=== PATIENT | female | born 1970 | race Caucasian/White ===

== ENCOUNTER → 2016-11-29 | Outpatient (CLI) | payer OTHER | LOC: BMCIMAGING 14:11 | PROVIDERS: ATTEND Internal Medicine | DX: M79.89 Other specified soft tissue disorders (principal) ==

== ENCOUNTER → 2017-07-29 | Outpatient (CLI) | payer OTHER | LOC: FIMAGING 15:32 | PROVIDERS: ATTEND Internal Medicine | DX: Z12.31 Encounter for screening mammogram for malignant neoplasm of breast (principal) | CPT/HCPCS: G0202 ==

== ENCOUNTER 2017-09-08 04:39 | Emergency (ER) | payer OTHER ==
[2017-09-08 04:45] VITALS: RESP 18; TEMP 98.2
[2017-09-08 05:39] LABS: PLATELET COUNT 215 10^3/uL (150-400)
--- NOTE | 2017-09-08 06:01 | EDPHY ---
H & P Stated Complaint: Fells like having a stroke, l jaw pain , no neuro sx., recent travel Time Seen by Provider: 09/08/17 04:45 HPI/ROS: HPI The patient presents with stiffness of her right jaw which began at about 4:00 a.m. when she awoke from sleep. She says it feels tight and swollen. She also reports that she has a tight sensation in her right axillary region. She awoke from sleep and felt sweaty and flushed. This happens intermittently to her and she attributes it to perimenopause. She does not have any shortness of breath, nausea, vomiting, dizziness. She says that she thinks she has noticed a right-sided facial droop since about August 17 which she has been monitoring. Her does not appreciate any new facial asymmetry. She denies any weakness of her arms or legs. She does not have any numbness or tingling. She did have a mild headache yesterday. She does not have a history of TMJ or grinding her teeth at night. She does have anxiety. She did just return from a trip to [facility]. She took an aspirin prior to arrival.. REVIEW OF SYSTEMS Constitutional: No fever, no chills. Eyes: No discharge. ENT: No sore throat. Cardiovascular: No chest pain, no palpitations. Respiratory: No cough, no shortness of breath. Gastrointestinal: No abdominal pain, no vomiting. Genitourinary: No hematuria. Musculoskeletal: No back pain. Skin: No rashes. Neurological: No headache. PMHx: History of anxiety Soc Hx: Lives at home with and 2 kids, never smoker FHx: No family history of CAD PHYSICAL General Appearance: Alert, no distress Eyes: Pupils equal and round no pallor or injection ENT, Mouth: Mucous membranes moist Respiratory: There are no retractions, lungs are clear to auscultation Cardiovascular: Regular rate and rhythm Gastrointestinal: Abdomen is soft and non-tender, no masses, bowel sounds normal Neurological: Alert and oriented x3, cranial nerves 2-12 intact, 5/5 strength of upper and lower extremities which is symmetric, normal gait, normal heel to vera testing, normal finger to nose testing, speech is fluid Skin: Warm and dry, no rashes Musculoskeletal: Neck is supple non tender Extremities: symmetrical, full range of motion Psychiatric: Patient is oriented X 3, there is no agitation Source: Patient Exam Limitations: No limitations - Personal History LMP (Females 10-55): Irregular Current Tetanus/Diphtheria Vaccine: Yes Current Tetanus Diphtheria and Acellular Pertussis (TDAP): Yes - Medical/Surgical History Hx Asthma: No Hx Chronic Respiratory Disease: No Hx Diabetes: No Hx Cardiac Disease: No Hx Renal Disease: No Hx Cirrhosis: No Hx Alcoholism: No Hx HIV/AIDS: No Hx Splenectomy or Spleen Trauma: No Other PMH: anxiety - Social History Smoking Status: Never smoked Constitutional: Initial Vital Signs Temperature (C) 36.8 C 09/08/17 04:40 Heart Rate 72 09/08/17 04:40 Respiratory Rate 18 09/08/17 04:40 Blood Pressure 108/52 L 09/08/17 04:40 O2 Sat (%) 99 09/08/17 04:40 O2 Delivery Mode Room Air Allergies/Adverse Reactions: ciprofloxacin [From Cipro] Allergy (Verified 09/08/17 04:44) ciprofloxacin HCl [From Cipro] Allergy (Verified 09/08/17 04:44) Home Medications: Medication Instructions Recorded Bactrim DS 05/29/14 Cymbalta 05/29/14 Medical Decision Making - Diagnostics EKG Interpretation: EKG: Complete interpretation has been separately recorded in the [facility] archive. Summary impression: Normal sinus rhythm Imaging Results: CT scan head is unremarkable, no sinusitis, discussed with Dr. Baca of Radiology. Differential Diagnosis: 47-year-old healthy female with history of anxiety presents with left-sided head jaw tightness and left axillary tightness since 4:00 a.m. this morning when she awoke from sleep with some diaphoresis. On exam, she is generally well -appearing with normal vital signs. Neurologic exam is normal, though the patient does report right-sided facial droop for the last several weeks. Differential diagnosis includes ACS, TMJs symptoms, muscle strain, electrolyte disturbance. I feel acute stroke is unlikely, however since she has had facial droop reported symptoms for the last several weeks she could have subacute stroke. In the emergency department CT scan of head was performed and was relatively unremarkable. Labs were checked and were normal. EKG was unremarkable. I feel she is likely suffering from muscle strain versus anxiety. I feel she is safe for discharge. I have discussed this with her and she is comfortable going home. She can follow up with her primary care doctor. - Data Points Laboratory Results: Laboratory Results 09/08/17 05:26 09/08/17 05:26 09/08/17 09/08/17 05:26 05:26 WBC 6.12 10^3/uL 10^3/uL (3.80-9.50) RBC 4.08 10^6/uL L 10^6/uL (4.18-5.33) Hgb 12.4 g/dL L g/dL (12.6-16.3) Hct 36.1 % L % (38.0-47.0) MCV 88.5 fL fL (81.5-99.8) MCH 30.4 pg pg (27.9-34.1) MCHC 34.3 g/dL g/dL (32.4-36.7) RDW 12.9 % % (11.5-15.2) Plt Count 215 10^3/uL 10^3/uL (150-400) MPV 9.8 fL fL (8.7-11.7) Neut % (Auto) 56.9 % % (39.3-74.2) Lymph % (Auto) 28.9 % % (15.0-45.0) Chambers % (Auto) 11.1 % % (4.5-13.0) Eos % (Auto) 2.1 % % (0.6-7.6) Baso % (Auto) 0.7 % % (0.3-1.7) Nucleat RBC Rel Count 0.0 % % (0.0-0.2) Absolute Neuts (auto) 3.48 10^3/uL 10^3/uL (1.70-6.50) Absolute Lymphs (auto) 1.77 10^3/uL 10^3/uL (1.00-3.00) Absolute Monos (auto) 0.68 10^3/uL 10^3/uL (0.30-0.80) Absolute Eos (auto) 0.13 10^3/uL 10^3/uL (0.03-0.40) Absolute Basos (auto) 0.04 10^3/uL 10^3/uL (0.02-0.10) Absolute Nucleated RBC 0.00 10^3/uL 10^3/uL (0-0.01) Immature Gran % 0.3 % % (0.0-1.1) Immature Gran # 0.02 10^3/uL 10^3/uL (0.00-0.10) Sodium 142 mEq/L mEq/L (135-145) Potassium 4.1 mEq/L mEq/L (3.5-5.2) Chloride 105 mEq/L mEq/L (97-110) Carbon Dioxide 22 mEq/l mEq/l (22-31) Anion Gap 15 mEq/L mEq/L (8-16) BUN 19 mg/dL mg/dL (7-23) Creatinine 0.8 mg/dL mg/dL (0.6-1.0) Estimated GFR > 60 Glucose 95 mg/dL mg/dL (70-100) Calcium 9.7 mg/dL mg/dL (8.5-10.4) Troponin I < 0.012 ng/mL ng/mL (0.000-0.034) Departure - Departure Disposition: Home, Routine, Self-Care Clinical Impression: Jaw pain Condition: Good Instructions: Chest Pain (ED) Additional Instructions: You can follow up with your regular doctor later today as planned if you would like. If your feeling fine, it is okay to schedule your follow-up for about a week from now. Your CT scan did show a small calcification. This can be followed up with an MRI scan if needed. Referrals: Corinna Benton MD [Primary Care Provider] - As per Instructions
[2017-09-08 06:17] VITALS: BP 105/62; PULSE 64; O2SAT 95
--- NOTE | 2017-09-10 08:51 | CPEKG ---
Heart Rate: 66 RR Interval: 909 P-R Interval: 204 QRSD Interval: 90 QT Interval: 384 QTC Interval: 403 P [place]: 48 QRS [place]: 65 T Wave [place]: 31 EKG Severity - NORMAL ECG - EKG Impression: SINUS RHYTHM Electronically Signed By: Cuco Nam 10-Sep-2017 10:06:22
== END 2017-09-08 06:30 | disposition home or self-care (01) ==
DX: R68.84 Jaw pain (principal)
CPT/HCPCS: 82607-90